=== PATIENT | female | born 1945 | race Caucasian/White ===

== ENCOUNTER 2020-01-30 14:47 | Inpatient (IN) | payer MEDICARE, BC ==
--- NOTE | 2020-01-30 15:12 | ED ---
General Adult HPI - General Chief complaint: Syncope Stated complaint: syncope Time Seen by Provider: 01/30/20 14:52 Source: patient, EMS Mode of arrival: EMS Limitations: no limitations - History of Present Illness Initial comments: Dictation was produced using [employer] dictation software. please excuse any grammatical, word or spelling errors. This patient was cared for during a federal and state declared state of emergency secondary to Covid 19 Chief Complaint: 74-year-old female brought in by EMS for syncopal episode. History of Present Illness: Is a 74-year-old female she is currently asymptomatic. Patient states that today she was sitting on the toilet when she all of a sudden felt cramping in her abdominal area. All of a sudden the next she remembers was that she was in the ambulance. EMS reports that she was unconscious for approximately 5 minutes upon their initial evaluation. There was period of time where patient was pulseless according to EMS. No CPR was provided. All of a sudden patient came. Patient states she feels okay right now. She is not sure if she felt palpitations prior to syncopal episode. . The ROS documented in this emergency department record has been reviewed and confirmed by me. Those systems with pertinent positive or negative responses have been documented in the HPI. All other systems are other negative and/or noncontributory. PHYSICAL EXAM: General Impression: Alert and oriented x3, not in acute distress HEENT: Normocephalic atraumatic, extra-ocular movements intact, pupils equal and reactive to light bilaterally, mucous membranes moist. Cardiovascular: Heart regular rate and rhythm Chest: Able to complete full sentences, no retractions, no tachypnea Abdomen: abdomen soft, mild tenderness to the epigastric area, non-distended, no organomegaly Musculoskeletal: Pulses present and equal in all extremities, no peripheral edema Motor: no focal deficits noted Neurological: CN II-XII grossly intact, no focal motor or sensory deficits noted Skin: Intact with no visualized rashes Psych: Normal affect and mood ED course: 74-year-old female presents after syncopal episode. Vital signs upon arrival are within acceptable limits. EKG is normal Laboratory evaluation obtained. CBC unremarkable. Coag panel is negative. Metabolic panel is negative. Cardiac enzymes negative. Urinalysis shows 25 white blood cells. Patient does have some suprapubic cramping. She is observed in emergency department for a couple hours with no acute events. Considering how serious patient's initial presentation was EMS we'll have patient admitted and evaluated for syncope. Patient is agreeable with plan. EKG interpretation: Ventricular rate 64, normal sinus rhythm,. Interval 16, QRS 86, QTC 443. No GA prolongation, no QTC prolongation, no ST or T-wave changes noted. No old EKG for comparison. Overall, this EKG is unremarkable Severity scale (1-10): 0 - Related Data Home Medications Medication Instructions Recorded Confirmed Acetaminophen Tab [Tylenol Tab] 500 mg PO Q6H 01/30/20 01/30/20 Aspirin EC [Ecotrin Low Dose] 81 mg PO DAILY 01/30/20 01/30/20 Calcium Carbonate [Calcium] 600 mg PO DAILY 01/30/20 01/30/20 Candesartan Cilexetil 8 mg PO DAILY PRN 01/30/20 01/30/20 Cholecalciferol [Vitamin D3 (25 1,000 unit PO DAILY 01/30/20 01/30/20 Mcg = 1000 Iu)] Losartan Potassium 50 mg PO DAILY 01/30/20 01/30/20 Metoprolol Succinate (ER) [Toprol 50 mg PO HS 01/30/20 01/30/20 Xl] Potassium Gluconate 99 mg PO DAILY 01/30/20 01/30/20 Vit A/Vit C/Vit E/Zinc/Copper 1 cap PO DAILY 01/30/20 01/30/20 [ICAPS SOFTGEL] Vitamin C/Biotin [Hair, Skin and 1 tab PO DAILY 01/30/20 01/30/20 Nails] amLODIPine [Norvasc] 5 mg PO DAILY 01/30/20 01/30/20 Allergies Allergy/AdvReac Type Severity Reaction Status Date / Time No Known Allergies Allergy Verified 01/30/20 16:02 Review of Systems ROS Statement: Those systems with pertinent positive or pertinent negative responses have been documented in the HPI. ROS Other: All systems not noted in ROS Statement are negative. Past Medical History Past Medical History: GERD/Reflux, Hypertension History of Any Multi-Drug Resistant Organisms: None Reported Past Surgical History: Appendectomy, Cholecystectomy Past Psychological History: No Psychological Hx Reported Smoking Status: Never smoker Past Alcohol Use History: None Reported Past Drug Use History: None Reported General Exam Limitations: no limitations Course Vital Signs 01/30/20 01/30/20 15:06 16:14 Pulse Rate 69 Pulse Rate [ 80 Sitting] Pulse Rate [ 81 Standing] Pulse Rate [ 76 Supine] Respiratory 16 17 Rate Blood Pressure 157/76 Blood Pressure 167/80 [Sitting] Blood Pressure 170/87 [Standing] Blood Pressure 135/93 [Supine] O2 Sat by Pulse 96 Oximetry Medical Decision Making - Lab Data Result diagrams: 01/30/20 15:48 01/30/20 15:48 Lab Results 01/30/20 01/30/20 01/30/20 Range/Units 15:48 15:48 15:48 WBC 7.8 (3.8-10.6) k/uL RBC 4.36 (3.80-5.40) m/uL Hgb 13.2 (11.4-16.0) gm/dL Hct 41.1 (34.0-46.0) % MCV 94.2 (80.0-100.0) fL MCH 30.2 (25.0-35.0) pg MCHC 32.1 (31.0-37.0) g/dL RDW 12.9 (11.5-15.5) % Plt Count 217 (150-450) k/uL Neutrophils % 70 % Lymphocytes % 19 % Monocytes % 8 % Eosinophils % 2 % Basophils % 1 % Neutrophils # 5.4 (1.3-7.7) k/uL Lymphocytes # 1.5 (1.0-4.8) k/uL Monocytes # 0.6 (0-1.0) k/uL Eosinophils # 0.1 (0-0.7) k/uL Basophils # 0.1 (0-0.2) k/uL PT 10.1 (9.0-12.0) sec INR 1.0 (<1.2) APTT 22.1 (22.0-30.0) sec Sodium 139 (137-145) mmol/L Potassium 3.7 (3.5-5.1) mmol/L Chloride 107 (98-107) mmol/L Carbon Dioxide 25 (22-30) mmol/L Anion Gap 7 mmol/L BUN 15 (7-17) mg/dL Creatinine 0.95 (0.52-1.04) mg/dL Est GFR (CKD-EPI)AfAm 68 (>60 ml/min/1.73 sqM) Est GFR (CKD-EPI)NonAf 59 (>60 ml/min/1.73 sqM) Glucose 138 H (74-99) mg/dL Plasma Lactic Acid [place] (0.7-2.0) mmol/L Calcium 8.6 (8.4-10.2) mg/dL Magnesium 2.0 (1.6-2.3) mg/dL Total Bilirubin 0.4 (0.2-1.3) mg/dL AST 29 (14-36) U/L ALT 15 (4-34) U/L Alkaline Phosphatase 67 (38-126) U/L Troponin I (0.000-0.034) ng/mL Total Protein 6.8 (6.3-8.2) g/dL Albumin 4.2 (3.5-5.0) g/dL Lipase 155 (23-300) U/L Urine Color Urine Appearance (Clear) Urine pH (5.0-8.0) Ur Specific [place] (1.001-1.035) Urine Protein (Negative) Urine Glucose (UA) (Negative) Urine Ketones (Negative) Urine Blood (Negative) Urine Nitrite (Negative) Urine Bilirubin (Negative) Urine Urobilinogen (<2.0) mg/dL Ur Leukocyte Esterase (Negative) Urine RBC (0-5) /hpf Urine WBC (0-5) /hpf Ur Squamous Epith Cells (0-4) /hpf Urine Bacteria (None) /hpf Urine Mucus (None) /hpf 01/30/20 01/30/20 01/30/20 Range/Units 15:48 15:48 16:48 WBC (3.8-10.6) k/uL RBC (3.80-5.40) m/uL Hgb (11.4-16.0) gm/dL Hct (34.0-46.0) % MCV (80.0-100.0) fL MCH (25.0-35.0) pg MCHC (31.0-37.0) g/dL RDW (11.5-15.5) % Plt Count (150-450) k/uL Neutrophils % % Lymphocytes % % Monocytes % % Eosinophils % % Basophils % % Neutrophils # (1.3-7.7) k/uL Lymphocytes # (1.0-4.8) k/uL Monocytes # (0-1.0) k/uL Eosinophils # (0-0.7) k/uL Basophils # (0-0.2) k/uL PT (9.0-12.0) sec INR (<1.2) APTT (22.0-30.0) sec Sodium (137-145) mmol/L Potassium (3.5-5.1) mmol/L Chloride (98-107) mmol/L Carbon Dioxide (22-30) mmol/L Anion Gap mmol/L BUN (7-17) mg/dL Creatinine (0.52-1.04) mg/dL Est GFR (CKD-EPI)AfAm (>60 ml/min/1.73 sqM) Est GFR (CKD-EPI)NonAf (>60 ml/min/1.73 sqM) Glucose (74-99) mg/dL Plasma Lactic Acid [place] 1.3 (0.7-2.0) mmol/L Calcium (8.4-10.2) mg/dL Magnesium (1.6-2.3) mg/dL Total Bilirubin (0.2-1.3) mg/dL AST (14-36) U/L ALT (4-34) U/L Alkaline Phosphatase (38-126) U/L Troponin I <0.012 (0.000-0.034) ng/mL Total Protein (6.3-8.2) g/dL Albumin (3.5-5.0) g/dL Lipase (23-300) U/L Urine Color Yellow Urine Appearance Clear (Clear) Urine pH 6.0 (5.0-8.0) Ur Specific [place] 1.020 (1.001-1.035) Urine Protein Trace H (Negative) Urine Glucose (UA) Negative (Negative) Urine Ketones Negative (Negative) Urine Blood Negative (Negative) Urine Nitrite Negative (Negative) Urine Bilirubin Negative (Negative) Urine Urobilinogen 2.0 (<2.0) mg/dL Ur Leukocyte Esterase Large H (Negative) Urine RBC 2 (0-5) /hpf Urine WBC 25 H (0-5) /hpf Ur Squamous Epith Cells <1 (0-4) /hpf Urine Bacteria Rare H (None) /hpf Urine Mucus Rare H (None) /hpf Disposition Clinical Impression: Syncope Disposition: ADMITTED IP TO THIS HOSP Condition: Fair Referrals: Treasure Clarke DO [Primary Care Provider] - 1-2 days Decision Time: 17:30
[2020-01-30 16:05] LABS: Basophils # (A) 0.1 k/uL (0-0.2); Basophils % (A) 1 %; Eosinophils # (A) 0.1 k/uL (0-0.7); Eosinophils % (A) 2 %; HCT 41.1 % (34.0-46.0); HGB 13.2 gm/dL (11.4-16.0); Lymphocytes # (A) 1.5 k/uL (1.0-4.8); Lymphocytes % (A) 19 %; MCH 30.2 pg (25.0-35.0); MCHC 32.1 g/dL (31.0-37.0); MCV 94.2 fL (80.0-100.0); Mean Platelet Volume 7.8; Monocytes # (A) 0.6 k/uL (0-1.0); Monocytes % (A) 8 %; Neutrophils # (A) 5.4 k/uL (1.3-7.7); Neutrophils % (A) 70 %; Platelet Count 217 k/uL (150-450); RBC 4.36 m/uL (3.80-5.40); RDW 12.9 % (11.5-15.5); WBC 7.8 k/uL (3.8-10.6)
[2020-01-30 16:11] LABS: Partial Thromboplastin Time 22.1 sec (22.0-30.0); Prothrombin Time 10.1 sec (9.0-12.0)
[2020-01-30 16:20] LABS: Albumin 4.2 g/dL (3.5-5.0); Calcium 8.6 mg/dL (8.4-10.2); Potassium 3.7 mmol/L (3.5-5.1); Total Bilirubin 0.4 mg/dL (0.2-1.3); Total Protein 6.8 g/dL (6.3-8.2)
[2020-01-30 17:07] LABS: Appearance,Urine Clear (Clear); Bacteria,Urine Rare /hpf; Bilirubin,Urine Negative (Negative); Blood,Urine Negative (Negative); Color,Urine Yellow; Glucose,Urine (UA) Negative (Negative); Ketones,Urine Negative (Negative); Leukocyte Esterase,Urine Large (Negative); Mucus,Urine Rare /hpf; Nitrite,Urine Negative (Negative); Protein,Urine Trace (Negative); RBC,Urine 2 /hpf (0-5); Squamous Epithelial Cell,Urine <1 /hpf (0-4); WBC,Urine 25 /hpf (0-5)
[2020-01-30] MEDS ORDERED: cefTRIAXone IN SWFI 1,000 MG/10 ML SYRINGE IVP STA (17:08)
--- NOTE | 2020-01-30 17:14 | XR ---
EXAMINATION TYPE: XR chest 1V portable DATE OF EXAM: 01/30/2020 COMPARISON: Prior chest x-ray July 02, 2016. HISTORY: Syncope and weakness. TECHNIQUE: Single frontal view of the chest is obtained. FINDINGS: Persistent elevated lateral left hemidiaphragm. There is chronic parenchyma change bilatera lly without suspicious new focal air space opacity, pleural effusion, or pneumothorax seen. The card iac silhouette size is enlarged on current study. The osseous structures are demineralized. IMPRESSION: Chronic changes and cardiomegaly without suspicious acute pulmonary process.
[2020-01-30] MEDS ORDERED: NALOXONE 0.4 MG/ML 1 ML VIAL IV PRN (17:30)
--- NOTE | 2020-01-30 18:09 | P.HPIM ---
History of Present Illness H&P Date: 01/30/20 74-year-old female with PMH of hypertension presents the ED after syncopal episode. Patient states that she experienced lower abdominal cramping and thought that she had to use the washroom. She went to the toilet and states that she strained to have a bowel movement. Suddenly, she started experiencing lightheadedness along with nausea and sweating. She was able to lean up against the wall. She denies any head trauma. There was no bladder or bowel incontinence. There is no seizure-like activity. Patient was able to call for help and EMS was called. When EMS arrived, stated that patient lost consciousness for 5 minutes. There is also reports that patient lost her pulse. It is unclear why CPR was not performed. She was able to regain consciousness with EMS. Patient continues to report bilateral lower abdominal cramping along with nausea. States that she had 3 bowel movements today, loose stool. She denies any headache, lower extremity edema, fever or chills, cough, chest pain, shortness of breath. No changes in appetite or weight. She denies any numbness/weakness/tingling of the extremities. She denies any slurred speech or confusion. In the ED, her vital signs were stable. Orthostatic vitals were negative. CBC was unremarkable. CMP showed glucose of 138. Troponin was less than 0.012, EKG showing normal sinus rhythm. Urinalysis showed large leukocyte esterase. Chest x-ray showed chronic changes. Patient is admitted after syncopal episode for further workup and cardiology evaluation. Review of Systems Pertinent positives and negatives as discussed in HPI, a complete review of systems was performed and all other systems are negative. Past Medical History Past Medical History: GERD/Reflux, Hypertension History of Any Multi-Drug Resistant Organisms: None Reported Past Surgical History: Appendectomy, Cholecystectomy Past Psychological History: No Psychological Hx Reported Smoking Status: Never smoker Past Alcohol Use History: None Reported Past Drug Use History: None Reported Medications and Allergies Home Medications Medication Instructions Recorded Confirmed Type Acetaminophen Tab [Tylenol Tab] 500 mg PO Q6H 01/30/20 01/30/20 History Aspirin EC [Ecotrin Low Dose] 81 mg PO DAILY 01/30/20 01/30/20 History Calcium Carbonate [Calcium] 600 mg PO DAILY 01/30/20 01/30/20 History Candesartan Cilexetil 8 mg PO DAILY PRN 01/30/20 01/30/20 History Cholecalciferol [Vitamin D3 (25 1,000 unit PO DAILY 01/30/20 01/30/20 History Mcg = 1000 Iu)] Losartan Potassium 50 mg PO DAILY 01/30/20 01/30/20 History Metoprolol Succinate (ER) [Toprol 50 mg PO HS 01/30/20 01/30/20 History Xl] Potassium Gluconate 99 mg PO DAILY 01/30/20 01/30/20 History Vit A/Vit C/Vit E/Zinc/Copper 1 cap PO DAILY 01/30/20 01/30/20 History [ICAPS SOFTGEL] Vitamin C/Biotin [Hair, Skin and 1 tab PO DAILY 01/30/20 01/30/20 History Nails] amLODIPine [Norvasc] 5 mg PO DAILY 01/30/20 01/30/20 History Allergies Allergy/AdvReac Type Severity Reaction Status Date / Time No Known Allergies Allergy Verified 01/30/20 16:02 Physical Exam Vitals: Vital Signs Pulse Pulse Pulse Pulse Resp BP BP 01/30/20 17:15 70 16 126/76 01/30/20 16:14 69 17 157/76 01/30/20 15:06 80 81 76 16 167/80 BP BP Pulse Ox 01/30/20 17:15 100 01/30/20 16:14 96 01/30/20 15:06 170/87 135/93 Intake and Output 01/30/20 01/30/20 01/30/20 06:59 14:59 22:59 Other: Weight 63.503 kg General: [non toxic], [mild distress], [appears at stated age] Derm: [warm], [dry] Head: [atraumatic], [normocephalic], [symmetric] Eyes: [EOMI], [no lid lag], [anicteric sclera] Mouth: [no lip lesion], [mucus membranes moist] Cardiovascular: [S1S2 reg], [no murmur], [positive DP pulse bilateral], Lungs: [CTA bilateral], [no rhonchi, no rales] , [no accessory muscle use] Abdominal: [soft], [ nontender to palpation], [no guarding], [no appreciable organomegaly] Ext: [no gross muscle atrophy], [no edema], [no contractures] Neuro: [ CN II-XI grossly intact], [no focal neuro deficits] Psych: [Alert], [oriented], [appropriate affect] Results CBC & Chem 7: 01/30/20 15:48 01/30/20 15:48 Labs: Abnormal Lab Results - Last 24 Hours (Table) 01/30/20 01/30/20 Range/Units 15:48 16:48 Glucose 138 H (74-99) mg/dL Urine Protein Trace H (Negative) Ur Leukocyte Esterase Large H (Negative) Urine WBC 25 H (0-5) /hpf Urine Bacteria Rare H (None) /hpf Urine Mucus Rare H (None) /hpf Assessment and Plan Assessment: Syncopal episode Abdominal cramping with abnormal urinalysis Hypertension GERD Patient syncopal episode is consistent with vasovagal. Unclear EMS reports pulseless activity but did not perform CPR. Troponin is less than 0.012 with EKG showing normal sinus rhythm. Plans: Telemetry monitoring. Trend troponin/EKG to rule out ACS. Obtain echocardiogram. Orthostats tomorrow morning. Follow cardiology consultation. Urinalysis shows large leukocyte esterase. Plans: Patient with no urinary complaints. In light of abdominal cramping, start Rocephin 1 g daily. Follow urine culture. Obtain CT AP if pain is persistent tomorrow. BP 157/76. Plans: Restart amlodipine and losartan. Restart metoprolol. Monitor vitals, adjust medications if necessary. Plans: Protonix by mouth. DVT prophylaxis: [SCD boots] Discussed with: [Patient] Anticipated discharge: [1-2 days] Anticipated discharge place: [Home] A total of [35] minutes was spent on the care of this complex patient more than 50% of the time was spent in counseling and care coordination. Patient would like to be full code. She names her son Yifan and build decision- makers if she can't make decisions for herself.
[2020-01-30] MEDS: ACETAMINOPHEN TAB 325 MG TAB PO PRN (18:10)
[2020-01-30] MEDS: SODIUM CHLORIDE 0.9% 1,000 ML IV SCH (18:11)
[2020-01-30] MEDS: PANTOPRAZOLE 40 MG TABLET PO SCH (20:24)
[2020-01-30] MEDS: METOPROLOL SUCCINATE (ER) 50 MG TAB.ER.24H PO SCH (20:24)
[2020-01-30] MEDS: HYDROcodone/APAP 5-325MG 1 EACH TAB PO PRN (20:24)
[2020-01-30 23:20] LABS: Basophils # (A) 0.1 k/uL (0-0.2); Basophils % (A) 1 %; Eosinophils # (A) 0.1 k/uL (0-0.7); Eosinophils % (A) 1 %; HCT 39.5 % (34.0-46.0); HGB 12.8 gm/dL (11.4-16.0); Lymphocytes % (A) 7 %; MCH 30.4 pg (25.0-35.0); MCHC 32.3 g/dL (31.0-37.0); MCV 94.1 fL (80.0-100.0); Mean Platelet Volume 8.3; Monocytes # (A) 0.9 k/uL (0-1.0); Monocytes % (A) 6 %; Neutrophils # (A) 12.3 k/uL (1.3-7.7); Neutrophils % (A) 85 %; Platelet Count 209 k/uL (150-450); RBC 4.19 m/uL (3.80-5.40); RDW 12.8 % (11.5-15.5); WBC 14.5 k/uL (3.8-10.6)
[2020-01-31] MEDS: HYDROcodone/APAP 5-325MG 1 EACH TAB PO PRN ×2 (03:19→13:47)
[2020-01-31] MEDS ORDERED: PANTOPRAZOLE 40 MG TABLET PO SCH (07:30)
[2020-01-31 07:34] LABS: African American GFR (CKD) >90 (>60 ml/min/1.73 sqM); Anion Gap 9 mmol/L; Blood Urea Nitrogen 13 mg/dL (7-17); Calcium 8.5 mg/dL (8.4-10.2); Carbon Dioxide 19 mmol/L (22-30); Chloride 111 mmol/L (98-107); Glucose 93 mg/dL (74-99); Magnesium 1.9 mg/dL (1.6-2.3); Non-African American GFR(CKD) 81 (>60 ml/min/1.73 sqM); Potassium 3.9 mmol/L (3.5-5.1); Sodium 139 mmol/L (137-145)
[2020-01-31] MEDS: PANTOPRAZOLE 40 MG TABLET PO SCH ×2 (07:46→16:53)
[2020-01-31 07:51] LABS: Basophils % (A) 0 %; Eosinophils # (A) 0.1 k/uL (0-0.7); Eosinophils % (A) 1 %; HCT 41.2 % (34.0-46.0); HGB 13.1 gm/dL (11.4-16.0); Lymphocytes # (A) 1.3 k/uL (1.0-4.8); Lymphocytes % (A) 9 %; MCH 29.5 pg (25.0-35.0); MCHC 31.7 g/dL (31.0-37.0); MCV 92.9 fL (80.0-100.0); Mean Platelet Volume 8.5; Monocytes # (A) 1.1 k/uL (0-1.0); Monocytes % (A) 7 %; Neutrophils # (A) 11.7 k/uL (1.3-7.7); Neutrophils % (A) 82 %; Platelet Count 207 k/uL (150-450); RBC 4.44 m/uL (3.80-5.40); RDW 13.3 % (11.5-15.5); WBC 14.2 k/uL (3.8-10.6)
--- NOTE | 2020-01-31 09:47 | P.CRDCN ---
History of Present Illness Consult date: 01/31/20 Consult reason: sycope Chief complaint: Syncope History of present illness: This is a pleasant 74-year-old female with documented history of hypertension, GERD. He presented to the hospital via EMS after a syncopal episode. According to the patient, she was out shopping yesterday, developed some abdominal cramping and felt as though she needed to use the restroom. After getting into the restroom, she states that the cramps worsened and the pain became quite severe. She felt as though she may pass out and shortly thereafter she did. There was some question on EMS arrival as to whether or not the patient had a pulse, no CPR was performed. Patient states she has had one prior episode, very similar to this one, at which time she again had abdominal cramping with subsequent syncope. Patient denies any significant cardiac history. Her chest x-ray on presentation was normal EKG showed normal sinus rhythm with no acute changes. Orthostatics were obtained which came back to be negative. 135/90 lying 167/80 sitting and 170/80 standing. Heart rate maintaining in the 80s she is afebrile, she did noticed this morning that she's having some bright red blood in her stool, stool for occult blood was obtained which came back to be positive. Troponins have been negative 3. Sodium 139, potassium 3.9, BUN 13, creatinine 0.73. C. diff was negative, whit[place] virus testing is pending. White blood cell count 14.2, hemoglobin 13.1, platelet count 207. The patient does state that she gets intermittent abdominal cramping, and does feel a little lightheaded when this happens. Past Medical History Past Medical History: GERD/Reflux, Hypertension History of Any Multi-Drug Resistant Organisms: None Reported Past Surgical History: Appendectomy, Cholecystectomy Past Anesthesia/Blood Transfusion Reactions: No Reported Reaction Past Psychological History: No Psychological Hx Reported Smoking Status: Never smoker Past Alcohol Use History: None Reported Past Drug Use History: None Reported - Past Family History Mother Family Medical History: Cancer Additional Family Medical History / Comment(s): bone cancer Father Family Medical History: Hypertension Additional Family Medical History / Comment(s): aneurysm Sister(s) Family Medical History: Hypertension Brother(s) Family Medical History: Cancer, Coronary Artery Disease (CAD) Additional Family Medical History / Comment(s): bone cancer, cabg Son(s) Family Medical History: No Reported History Medications and Allergies Home Medications Medication Instructions Recorded Confirmed Type Acetaminophen Tab [Tylenol Tab] 500 mg PO Q6H 01/30/20 01/30/20 History Aspirin EC [Ecotrin Low Dose] 81 mg PO DAILY 01/30/20 01/30/20 History Calcium Carbonate [Calcium] 600 mg PO DAILY 01/30/20 01/30/20 History Candesartan Cilexetil 8 mg PO DAILY PRN 01/30/20 01/30/20 History Cholecalciferol [Vitamin D3 (25 1,000 unit PO DAILY 01/30/20 01/30/20 History Mcg = 1000 Iu)] Losartan Potassium 50 mg PO DAILY 01/30/20 01/30/20 History Metoprolol Succinate (ER) [Toprol 50 mg PO HS 01/30/20 01/30/20 History Xl] Potassium Gluconate 99 mg PO DAILY 01/30/20 01/30/20 History Vit A/Vit C/Vit E/Zinc/Copper 1 cap PO DAILY 01/30/20 01/30/20 History [ICAPS SOFTGEL] Vitamin C/Biotin [Hair, Skin and 1 tab PO DAILY 01/30/20 01/30/20 History Nails] amLODIPine [Norvasc] 5 mg PO DAILY 01/30/20 01/30/20 History Allergies Allergy/AdvReac Type Severity Reaction Status Date / Time No Known Allergies Allergy Verified 01/30/20 19:25 Physical Exam Vitals: Vital Signs Temp Pulse Pulse Pulse Pulse Resp BP 01/31/20 02:45 97.5 F L 100 18 01/30/20 20:02 97.9 F 85 18 01/30/20 18:22 97.5 F L 68 10 L 165/77 01/30/20 17:15 70 16 126/76 01/30/20 16:14 69 17 157/76 01/30/20 15:06 80 81 76 16 BP BP BP Pulse Ox 01/31/20 02:45 181/88 100 01/30/20 20:02 156/87 100 01/30/20 18:22 97 01/30/20 17:15 100 01/30/20 16:14 96 01/30/20 15:06 167/80 170/87 135/93 Intake and Output 01/30/20 01/31/20 01/31/20 22:59 06:59 14:59 Output Total 1 Balance -1 Output: Stool 1 Other: Voiding Method Bedside Commode Bedside Commode # Voids 1 # Bowel Movements 1 PHYSICAL EXAMINATION: GENERAL: 74-year-old female in no acute distress at the time of my examination HEENT: Head is atraumatic, normocephalic. Pupils equal, round. Sclera anicteric. Conjunctiva are clear. Mucous membranes of the mouth are moist. Neck is supple. There is no elevated jugular venous pressure. No carotid bruit is heard. HEART EXAMINATION: Heart S1, S2 normal. No murmur or gallop heard. CHEST EXAMINATION: Lungs are clear to auscultation and precussion. No chest wall tenderness is noted on palpation or with deep breathing. ABDOMEN: Soft, nontender. Bowel sounds are heard. No organomegaly noted. EXTREMITIES: 2+ peripheral pulses with no evidence of peripheral edema and no calf tenderness noted. NEUROLOGIC patient is awake, alert and oriented 3 . . Results 01/31/20 06:54 01/31/20 06:54 Cardiac Enzymes 01/30/20 01/30/20 01/30/20 Range/Units 15:48 15:48 17:58 AST 29 (14-36) U/L Troponin I <0.012 <0.012 (0.000-0.034) ng/mL 01/30/20 Range/Units 23:00 AST (14-36) U/L Troponin I <0.012 (0.000-0.034) ng/mL Coagulation 01/30/20 Range/Units 15:48 PT 10.1 (9.0-12.0) sec APTT 22.1 (22.0-30.0) sec CBC 01/30/20 01/30/20 01/31/20 Range/Units 15:48 23:00 06:54 WBC 7.8 14.5 H 14.2 H (3.8-10.6) k/uL RBC 4.36 4.19 4.44 (3.80-5.40) m/uL Hgb 13.2 12.8 13.1 (11.4-16.0) gm/dL Hct 41.1 39.5 41.2 (34.0-46.0) % Plt Count 217 209 207 (150-450) k/uL Comprehensive Metabolic Panel 01/30/20 01/31/20 Range/Units 15:48 06:54 Sodium 139 139 (137-145) mmol/L Potassium 3.7 3.9 (3.5-5.1) mmol/L Chloride 107 111 H (98-107) mmol/L Carbon Dioxide 25 19 L (22-30) mmol/L BUN 15 13 (7-17) mg/dL Creatinine 0.95 0.73 (0.52-1.04) mg/dL Glucose 138 H 93 (74-99) mg/dL Calcium 8.6 8.5 (8.4-10.2) mg/dL AST 29 (14-36) U/L ALT 15 (4-34) U/L Alkaline Phosphatase 67 (38-126) U/L Total Protein 6.8 (6.3-8.2) g/dL Albumin 4.2 (3.5-5.0) g/dL Current Medications Generic Name Dose Route Start Last Admin Trade Name Freq PRN Reason Stop Dose Admin Acetaminophen 650 mg 01/30/20 17:54 01/30/20 18:10 Acetaminophen Tab 325 Mg Tab PO 650 mg Q6HR PRN Administration Mild Pain or Fever > 100.5 Hydrocodone Bitart/Acetaminophen 1 each 01/30/20 19:35 01/31/20 03:19 Hydrocodone/Apap 5-325mg 1 Each Tab PO 1 each Q4HR PRN Administration Pain Amlodipine Besylate 5 mg 01/31/20 09:00 Amlodipine 5 Mg Tab PO DAILY ANA Aspirin 81 mg 01/31/20 09:00 Aspirin 81 Mg PO DAILY ANA Sodium Chloride 1,000 mls @ 20 mls/hr 01/30/20 17:30 01/30/20 18:11 Saline 0.9% IV 20 mls/hr .Q24H ANA Administration Losartan Potassium 50 mg 01/31/20 09:00 Losartan 50 Mg Tab PO DAILY ANA Metoprolol Succinate 50 mg 01/30/20 21:00 01/30/20 20:24 Metoprolol Succinate (Er) 50 Mg Tab.Er.24h PO 50 mg HS ANA Administration Naloxone HCl 0.2 mg 01/30/20 17:30 Naloxone 0.4 Mg/Ml 1 Ml Vial IV Q2M PRN Opioid Reversal Pantoprazole Sodium 40 mg 10/06/20 19:45 01/31/20 07:46 Pantoprazole 40 Mg Tablet PO 40 mg AC-BID ANA Administration Intake and Output 01/30/20 01/31/20 01/31/20 22:59 06:59 14:59 Output Total 1 Balance -1 Output: Stool 1 Other: Voiding Method Bedside Commode Bedside Commode # Voids 1 # Bowel Movements 1 01/31/20 06:54 01/31/20 06:54 EKG Interpretations (text) EKG shows a normal sinus rhythm with no acute changes. Assessment and Plan Plan: Assessment and plan #1 syncope, likely vasovagal in nature, precipitated by pain. Patient had one very similar episode in the past. We will rule out any cardiac causes. Orthostatics have been negative so far. No arrhythmias noted on the monitor. #2 hypertension #3 GERD #4 bright red bloody stools this morning stool for occult blood positive Plan We will obtain an echocardiogram with Doppler study, check a d-dimer, continue to monitor the patient for any significant tachycardia or bradycardia arrhythmias, we will continue to check orthostatics every shift although so far they have been negative. Recommend a 30 day event monitor on discharge. Further recommendations to follow. DNP note has been reviewed, I agree with a documented findings and plan of care. Patient was seen and examined.
[2020-01-31] MEDS ORDERED: IOPAMIDOL CONTRAST (ORAL USE) VIAL PO PRN (09:50)
[2020-01-31] MEDS: ONDANSETRON 4 MG/2 ML VIAL IVP PRN ×2 (10:15→21:09)
--- NOTE | 2020-01-31 12:03 | P.PN ---
Subjective Progress Note Date: 01/31/20 Patient was seen and examined. No acute events overnight. Multiple bloody bowel movements overnight with abdominal cramping. Patient denies any chest pain, shortness breath or palpitations. Complains of some nausea. No dizziness or further syncopal episodes. No fever or chills. Objective - Vital Signs Vital signs: Vital Signs Temp 98.4 F 01/31/20 09:00 Pulse 74 01/31/20 09:00 Resp 19 01/31/20 09:00 BP 163/73 01/31/20 09:00 Pulse Ox 98 01/31/20 09:00 Intake & Output 01/30/20 01/31/20 01/31/20 18:59 06:59 18:59 Output Total 1 Balance -1 Weight 63.503 kg Output: Stool 1 Other: Voiding Method Bedside Commode # Voids 1 # Bowel Movements 1 - Exam General: [non toxic], [no distress], [appears at stated age] Derm: [warm], [dry] Head: [atraumatic], [normocephalic], [symmetric] Eyes: [EOMI], [no lid lag], [anicteric sclera] Mouth: [no lip lesion], [mucus membranes moist] Cardiovascular: [S1S2 reg], [no murmur], [positive posterior tibial pulse bilateral], Lungs: [CTA bilateral], [no rhonchi, no rales] , [no accessory muscle use] Abdominal: [soft], [ nontender to palpation], [no guarding], [no appreciable organomegaly] Ext: [no gross muscle atrophy], [no edema], [no contractures] Neuro: [no focal neuro deficits] Psych: [Alert], [oriented], [appropriate affect] - Labs CBC & Chem 7: 01/31/20 06:54 01/31/20 06:54 Labs: Abnormal Lab Results - Last 24 Hours (Table) 01/30/20 01/30/20 01/30/20 Range/Units 15:48 16:48 19:35 WBC (3.8-10.6) k/uL Neutrophils # (1.3-7.7) k/uL Monocytes # (0-1.0) k/uL Chloride (98-107) mmol/L Carbon Dioxide (22-30) mmol/L Glucose 138 H (74-99) mg/dL Urine Protein Trace H (Negative) Ur Leukocyte Esterase Large H (Negative) Urine WBC 25 H (0-5) /hpf Urine Bacteria Rare H (None) /hpf Urine Mucus Rare H (None) /hpf Stool Occult Blood Positive H (Negative) 01/30/20 01/31/20 01/31/20 Range/Units 23:00 06:54 06:54 WBC 14.5 H 14.2 H (3.8-10.6) k/uL Neutrophils # 12.3 H 11.7 H (1.3-7.7) k/uL Monocytes # 1.1 H (0-1.0) k/uL Chloride 111 H (98-107) mmol/L Carbon Dioxide 19 L (22-30) mmol/L Glucose (74-99) mg/dL Urine Protein (Negative) Ur Leukocyte Esterase (Negative) Urine WBC (0-5) /hpf Urine Bacteria (None) /hpf Urine Mucus (None) /hpf Stool Occult Blood (Negative) Microbiology - Last 24 Hours (Table) 01/30/20 18:19 Urine Culture - Preliminary Urine,Clean Catch 01/30/20 20:21 Stool Culture - Preliminary Stool Assessment and Plan Assessment: Syncopal episode Abdominal cramping with hematochezia Abnormal urinalysis Hypertension GERD Patient syncopal episode is consistent with vasovagal. Unclear EMS reports pulseless activity but did not perform CPR. Troponin is less than 0.012 3 with EKG showing normal sinus rhythm. Orthostats negative. Plans: Telemetry monitoring. Obtain echocardiogram. Follow cardiology consultation. Possible diverticulitis. Also has leukocytosis. Plans: Obtain CT abdomen and pelvis with contrast. Follow GI consultation. Urinalysis shows large leukocyte esterase. Plans: Patient with no urinary complaints. In light of abdominal cramping, start Rocephin 1 g daily. Follow urine culture. BP 173/74. Plans: Restart amlodipine and losartan. Restart metoprolol. Monitor vitals, adjust medications if necessary. Plans: Protonix by mouth. DVT prophylaxis: [SCD boots] Discussed with: [Patient] Anticipated discharge: [1-2 days] Anticipated discharge place: [Home] A total of [35] minutes was spent on the care of this complex patient more than 50% of the time was spent in counseling and care coordination. Patient would like to be full code. She names her son Yifan and build decision- makers if she can't make decisions for herself.
[2020-01-31] MEDS: amLODIPine 5 MG TAB PO SCH (12:08)
[2020-01-31] MEDS: ASPIRIN 81 MG PO SCH (12:09)
[2020-01-31] MEDS: LOSARTAN 50 MG TAB PO SCH (12:09)
--- NOTE | 2020-01-31 12:57 | CT ---
EXAMINATION TYPE: CT abdomen pelvis w con DATE OF EXAM: 01/31/2020 COMPARISON: None HISTORY: GI bleed CT DLP: 826 mGycm Automated exposure control for dose reduction was used. TECHNIQUE: Helical acquisition of images from the lung bases through the pelvis have been completed. CONTRAST: Performed with Oral Contrast and with IV Contrast, patient injected with 100 mL of Isovue 300. FINDINGS: There is a large gastric diverticulum or ulcer present at the level of the cardia which is contrast-filled. LUNG BASES: Some probable dependent atelectatic changes are present AORTA: No significant abnormality is appreciated. LIVER/GB: Patient is post cholecystectomy. Some prominence of the biliary system, central intrahepati c biliary ducts common bile duct likely due to postcholecystectomy change.e low dense liver could be due to underlying hepatic steatosis. PANCREAS: No significant abnormality is seen. SPLEEN: Punctate calcifications suggest old granulomatous disease ADRENALS: No significant abnormality is seen. KIDNEYS: No significant abnormality is seen. REPRODUCTIVE ORGANS: No significant abnormality is seen BOWEL: Descending colon shows focal thickening, there is some pericolonic inflammatory change.. FREE AIR: No Free Air visible. ASCITES: Small amount of free fluid present within the pelvis. PELVIC ADENOPATHY: None visualized. RETROPERITONEAL ADENOPATHY: No Retroperitoneal Adenopathy visible. URINARY BLADDER: No significant abnormality is seen. OSSEOUS STRUCTURES: Degenerative disc changes, facet arthropathy noted in the visualized spine. Ther e is a spinal curvature. IMPRESSION: CORRELATE FOR COLITIS. FOLLOW-UP SUGGESTED. POSTOP CHANGES. PROBABLE LARGE GASTRIC DIVERTICULUM OR UL CER.
[2020-01-31] MEDS: metroNIDAZOLE-NS PMX 500 MG in SALINE 1 100ML.BAG IVPB SCH ×2 (16:26→23:12)
[2020-01-31] MEDS: SODIUM CHLORIDE 0.9% 1,000 ML IV SCH (18:16)
--- NOTE | 2020-01-31 19:00 | ECHOF ---
Referral Reason:Syncope MEASUREMENTS -------- HEIGHT: 160.0 cm WEIGHT: 63.5 kg BP: IVSd: 1.3 cm (0.6 - 1.1) LVIDd: 3.3 cm (3.9 - 5.3) LVPWd: 1.4 cm (0.6 - 1.1) IVSs: 1.6 cm LVIDs: 1.5 cm LVPWs: 1.8 cm Ao Diam: 2.6 cm (2.0 - 3.7) AV Cusp: 2.0 cm (1.5 - 2.6) LA Diam: 3.9 cm (2.7 - 3.8) MV EXCURSION: 15.618 mm (> 18.000) MV EF SLOPE: 97 mm/s (70 - 150) EPSS: 0.3 cm MV E Imtiaz: 1.28 m/s MV DecT: 223 ms MV A Imtiaz: 0.92 m/s MV E/A Ratio: 1.39 RAP: 5.00 mmHg RVSP: 33.34 mmHg FINDINGS -------- This was a technically difficult study with suboptimal views. The left ventricular size is normal. There is mild concentric left ventricular hypertrophy. Overa ll left ventricular systolic function is normal with, an EF between 55 - 60 %. The right ventricle is normal in size. The left atrial size is normal. The right atrial size is normal. The aortic valve was not well visualized. The mitral valve is normal. There is trace mitral regurgitation. The tricuspid valve appears structurally normal. Mild tricuspid regurgitation present. Right vent ricular systolic pressure is normal at < 35 mmHg. There is no pulmonic regurgitation present. The aortic root size is normal. IVC Not well visulized. There is no pericardial effusion. CONCLUSIONS -------- 1. The left ventricular size is normal. 2. There is mild concentric left ventricular hypertrophy. 3. Overall left ventricular systolic function is normal with, an EF between 55 - 60 %. 4. There is trace mitral regurgitation. 5. Mild tricuspid regurgitation present. 6. There is no pericardial effusion. CAR REPAIRER HELPER: Malathi Diop, [facility]
[2020-01-31] MEDS: METOPROLOL SUCCINATE (ER) 50 MG TAB.ER.24H PO SCH (21:11)
[2020-02-01] MEDS: HYDROcodone/APAP 5-325MG 1 EACH TAB PO PRN (00:10)
--- NOTE | 2020-02-01 07:33 | P.CONS ---
History of Present Illness - Reason for Consult Consult date: 01/31/20 Diarrhea, blood per rectum Requesting physician: Oscar Alexandre - Chief Complaint Diarrhea, blood per rectum - History of Present Illness 74-year-old female with a past medical history significant for hypertension who presented to the hospital with complaints of abdominal pain, diarrhea rectum. The patient reports developing crampy abdominal pain. Cramping was diffuse across her abdomen. The patient reports subsequently having 78 loose watery bowel movements over the night. She had associated bright red blood passed with the episodes of diarrhea. She denies any constipation or straining at baseline her proceeding the episode. She does report nausea with no vomiting in association with the episode. Last colonoscopy less than 4 years ago per her recollection and normal. Stool testing for occult blood positive on presentation. Testing for Clostridium difficile negative. WBC 14.2, hemoglobin 13.1, platelet count 207,000, total bilirubin 0.4, alkaline phosphatase 67, AST 29 and ALT 15. The patient had computed tomography scan of the abdomen perfor med in evaluation with evidence of the descending colitis. Currently she is seen lying in the observation unit reporting some improvement in the abdominal pain. Only one further episode of diarrhea since this morning with only a small amount of blood. Review of Systems REVIEW OF SYSTEMS: CONSTITUTIONAL: Denies any fevers, chills, weight change or fatigue. CARDIOVASCULAR: Denies any chest pain, palpitations high or low blood pressures RESPIRATORY: Denies any shortness of breath, hemoptysis or cough. GENITOURINARY: No dysuria or hematuria. MUSCULOSKELETAL: No weakness reported. SKIN: Denies any new rashes or lesions, jaundice or pallor. PSYCHIATRIC: Denies any depression or anxiety. NEUROLOGY: Denies headache, denies any new focal deficits. EARS/NOSE/THROAT: No recent hearing change, congestion, nasal discharge or sore throat. EYES: No pain in eyes, discharge or change in vision. GASTROINTESTINAL: As per HPI. Past Medical History Past Medical History: GERD/Reflux, Hypertension History of Any Multi-Drug Resistant Organisms: None Reported Past Surgical History: Appendectomy, Cholecystectomy Past Anesthesia/Blood Transfusion Reactions: No Reported Reaction Past Psychological History: No Psychological Hx Reported Smoking Status: Never smoker Past Alcohol Use History: None Reported Past Drug Use History: None Reported - Past Family History Mother Family Medical History: Cancer Additional Family Medical History / Comment(s): bone cancer Father Family Medical History: Hypertension Additional Family Medical History / Comment(s): aneurysm Sister(s) Family Medical History: Hypertension Brother(s) Family Medical History: Cancer, Coronary Artery Disease (CAD) Additional Family Medical History / Comment(s): bone cancer, cabg Son(s) Family Medical History: No Reported History Medications and Allergies Home Medications Medication Instructions Recorded Confirmed Type Acetaminophen Tab [Tylenol Tab] 500 mg PO Q6H 01/30/20 01/30/20 History Aspirin EC [Ecotrin Low Dose] 81 mg PO DAILY 01/30/20 01/30/20 History Calcium Carbonate [Calcium] 600 mg PO DAILY 01/30/20 01/30/20 History Candesartan Cilexetil 8 mg PO DAILY PRN 01/30/20 01/30/20 History Cholecalciferol [Vitamin D3 (25 1,000 unit PO DAILY 01/30/20 01/30/20 History Mcg = 1000 Iu)] Losartan Potassium 50 mg PO DAILY 01/30/20 01/30/20 History Metoprolol Succinate (ER) [Toprol 50 mg PO HS 01/30/20 01/30/20 History Xl] Potassium Gluconate 99 mg PO DAILY 01/30/20 01/30/20 History Vit A/Vit C/Vit E/Zinc/Copper 1 cap PO DAILY 01/30/20 01/30/20 History [ICAPS SOFTGEL] Vitamin C/Biotin [Hair, Skin and 1 tab PO DAILY 01/30/20 01/30/20 History Nails] amLODIPine [Norvasc] 5 mg PO DAILY 01/30/20 01/30/20 History Allergies Allergy/AdvReac Type Severity Reaction Status Date / Time No Known Allergies Allergy Verified 01/30/20 19:25 Physical Exam Vitals: Vital Signs Temp Pulse Pulse Pulse Pulse Resp BP 01/31/20 09:00 98.4 F 78 76 74 18 01/31/20 02:45 97.5 F L 100 18 01/30/20 20:02 97.9 F 85 18 01/30/20 18:22 97.5 F L 68 10 L 165/77 01/30/20 17:15 70 16 126/76 01/30/20 16:14 69 17 157/76 01/30/20 15:06 80 81 76 16 BP BP BP Pulse Ox 01/31/20 09:00 173/74 157/72 163/73 98 01/31/20 02:45 181/88 100 01/30/20 20:02 156/87 100 01/30/20 18:22 97 01/30/20 17:15 100 01/30/20 16:14 96 01/30/20 15:06 167/80 170/87 135/93 Intake and Output 01/30/20 01/31/20 01/31/20 22:59 06:59 14:59 Output Total 1 Balance -1 Output: Stool 1 Other: Voiding Method Bedside Commode Bedside Commode # Voids 1 # Bowel Movements 1 On physical examination, patient appears comfortable in no apparent distress. HEAD: Normocephalic, atraumatic. EYES: No scleral icterus. No conjunctival injection. MOUTH: No lesions, tongue midline. NECK: Trachea midline, no gross abnormalities. CHEST: Clear to auscultation with no wheezing or rhonchi appreciated. HEART: Regular rate and rhythm. ABDOMEN: Soft, mildly tender to palpation. Bowel sounds are positive. No organomegaly. No guarding or rigidity. EXTREMITIES: No pedal edema. SKIN: No rashes, no jaundice. NEUROLOGIC: Alert and oriented x3. No focal deficits. Results CBC & Chem 7: 01/31/20 06:54 01/31/20 06:54 Labs: Abnormal Lab Results - Last 24 Hours (Table) 01/30/20 01/30/20 01/30/20 Range/Units 15:48 16:48 19:35 WBC (3.8-10.6) k/uL Neutrophils # (1.3-7.7) k/uL Monocytes # (0-1.0) k/uL Chloride (98-107) mmol/L Carbon Dioxide (22-30) mmol/L Glucose 138 H (74-99) mg/dL Urine Protein Trace H (Negative) Ur Leukocyte Esterase Large H (Negative) Urine WBC 25 H (0-5) /hpf Urine Bacteria Rare H (None) /hpf Urine Mucus Rare H (None) /hpf Stool Occult Blood Positive H (Negative) 01/30/20 01/31/20 01/31/20 Range/Units 23:00 06:54 06:54 WBC 14.5 H 14.2 H (3.8-10.6) k/uL Neutrophils # 12.3 H 11.7 H (1.3-7.7) k/uL Monocytes # 1.1 H (0-1.0) k/uL Chloride 111 H (98-107) mmol/L Carbon Dioxide 19 L (22-30) mmol/L Glucose (74-99) mg/dL Urine Protein (Negative) Ur Leukocyte Esterase (Negative) Urine WBC (0-5) /hpf Urine Bacteria (None) /hpf Urine Mucus (None) /hpf Stool Occult Blood (Negative) Microbiology - Last 24 Hours (Table) 01/30/20 18:19 Urine Culture - Preliminary Urine,Clean Catch 01/30/20 20:21 Stool Culture - Preliminary Stool CT scan - abdomen: report reviewed (Computed tomography scan of the abdomen with findings of descending colitis) Assessment and Plan (1) Colitis Narrative/Plan: 74-year-old female presenting to the hospital with abdominal pain, blood per rectum and diarrhea resulting in a syncopal episode. Patient had a scan performed in evaluation with evidence of the descending colon colitis. No prior episodes. No chronicity to symptoms. WBC 14.2, hemoglobin 13.1, platelet count 207,000. She reports abdominal cramping diffusely across her abdomen with multiple episodes of loose watery bowel movements of bright red blood per rectum. Suspicion is for infectious or ischemic colitis, less likely inflammatory process given the acuity of symptoms. Last colonoscopy 4 years ago normal per her recollection. Current Visit: Yes Status: Acute Code(s): K52.9 - NONINFECTIVE GAS TROENTERITIS AND COLITIS, UNSPECIFIED SNOMED Code(s): 13562917 (2) Abdominal pain Current Visit: Yes Status: Acute Code(s): R10.9 - UNSPECIFIED ABDOMINAL PAIN SNOMED Code(s): 04971502 (3) Blood per rectum Current Visit: Yes Status: Acute Code(s): K62.5 - HEMORRHAGE OF ANUS AND RECTUM SNOMED Code(s): 33238001 Plan: Supportive care Clear liquid diet Continue IV fluid hydration Optimizing patient's blood pressure Continue ceftriaxone therapy and will add Flagyl Recommend 7-10 days of antibiotic therapy Patient will need repeat colonoscopy in 4-6 weeks for further evaluation Thank you for allowing us to participate in the care of the patient
[2020-02-01] MEDS: LOSARTAN 50 MG TAB PO SCH (07:43)
[2020-02-01] MEDS: PANTOPRAZOLE 40 MG TABLET PO SCH ×2 (07:43→15:58)
[2020-02-01] MEDS: amLODIPine 5 MG TAB PO SCH (07:43)
[2020-02-01] MEDS: metroNIDAZOLE-NS PMX 500 MG in SALINE 1 100ML.BAG IVPB SCH ×2 (07:43→15:58)
[2020-02-01] MEDS: ASPIRIN 81 MG PO SCH (07:43)
--- NOTE | 2020-02-01 11:26 | P.PN ---
Subjective Progress Note Date: 02/01/20 This is a pleasant 74-year-old female with documented history of hypertension, GERD. He presented to the hospital via EMS after a syncopal episode. According to the patient, she was out shopping yesterday, developed some abdominal cramping and felt as though she needed to use the restroom. Af ter getting into the restroom, she states that the cramps worsened and the pain became quite severe. She felt as though she may pass out and shortly thereafter she did. There was some question on EMS arrival as to whether or not the patient had a pulse, no CPR was performed. Patient states she has had one prior episode, very similar to this one, at which time she again had abdominal cramping with subsequent syncope. Patient denies any significant cardiac history. Her chest x-ray on presentation was normal EKG showed normal sinus rhythm with no acute changes. Orthostatics were obtained which came back to be negative. 135/90 lying 167/80 sitting and 170/80 standing. Heart rate maintain ing in the 80s she is afebrile, she did noticed this morning that she's having some bright red blood in her stool, stool for occult blood was obtained which came back to be positive. Troponins have been negative 3. Sodium 139, potassium 3.9, BUN 13, creatinine 0.73. C. diff was negative, whitney virus testing is pending. White blood cell count 14.2, hemoglobin 13.1, platelet count 207. The patient does state that she gets intermittent abdominal cramping, and does feel a little lightheaded when this happens. 02/01/2020 Patient was seen and examined this morning overall feeling significantly better than yesterday. Orthostatics came back to be negative. There were no tachycardia or bradycardia arrhythmias noted on the monitor. Echocardiogram with Doppler study showed an ejection fraction of 55-60%. CAT scan of the abdomen and pelvis was performed which revealed colitis, patient has been started on antibiotics. Blood pressure today and 43/60 lying, 169/70 sitting, 188/76 standing, heart rate in the 60s to 70s. No lab data today. Objective - Vital Signs Vital signs: Vital Signs Temp 98.1 F 02/01/20 08:19 Pulse 65 02/01/20 08:19 Resp 14 02/01/20 08:19 BP 143/62 02/01/20 08:19 Pulse Ox 94 L 02/01/20 08:19 Intake & Output 01/31/20 02/01/20 02/01/20 18:59 06:59 18:59 Intake Total 240 Output Total 1 4 Balance -1 236 Intake: Oral 240 Output: Stool 1 4 Other: Voiding Method Bedside Commode Bedside Commode # Voids 2 1 - Exam PHYSICAL EXAMINATION: GENERAL: 74-year-old female in no acute distress at the time of my examination HEENT: Head is atraumatic, normocephalic. Pupils equal, round. Sclera anicteric. Conjunctiva are clear. Mucous membranes of the mouth are moist. Neck is supple. There is no elevated jugular venous pressure. No carotid bruit is heard. HEART EXAMINATION: Heart S1, S2 normal. No murmur or gallop heard. CHEST EXAMINATION: Lungs are clear to auscultation and precussion. No chest wall tenderness is noted on palpation or with deep breathing. ABDOMEN: Soft, nontender. Bowel sounds are heard. No organomegaly noted. EXTREMITIES: 2+ peripheral pulses with no evidence of peripheral edema and no calf tenderness noted. NEUROLOGIC patient is awake, alert and oriented 3 . . - Labs CBC & Chem 7: 01/31/20 06:54 01/31/20 06:54 Labs: Abnormal Lab Results - Last 24 Hours (Table) 01/30/20 Range/Units 20:21 Stool Lactoferrin POSITIVE H (NEGATIVE) Microbiology - Last 24 Hours (Table) 01/30/20 18:19 Urine Culture - Final Urine,Clean Catch 01/30/20 17:58 Blood Culture - Preliminary Blood No Growth after 24 hours Assessment and Plan Plan: Assessment and plan #1 syncope, likely vasovagal in nature, precipitated by pain. Patient had one very similar episode in the past. We will rule out any cardiac causes. Orthostatics have been negative so far. No arrhythmias noted on the monitor. #2 hypertension #3 GERD #4 bright red bloody stools this morning stool for occult blood positive Plan Echocardiogram with Doppler study revealed a normal left ventricular systolic function. No evidence of significant orthostasis and no tachycardia or bradycardia arrhythmias have been noted. From cardiology's perspective, we would recommend on discharge the patient with 30 day event monitor. We will follow her along now here on an as-needed basis, please don't hesitate to call if you have any questions. DNP note has been reviewed, I agree with a documented findings and plan of care. Patient was seen and examined.
--- NOTE | 2020-02-01 12:32 | P.PN ---
Subjective Progress Note Date: 02/01/20 Principal diagnosis: Diarrhea, blood per rectum He patient was seen and examined at the bedside. She states she is feeling much better today. She states she had 2 small bloody bowel movements yesterday evening and one this morning. She denies any abdominal pain. States still has some mild nausea however no vomiting. She tolerated her clear liquid diet. Hemoglobin stable 13.2, WBC 14.2. Objective - Vital Signs Vital signs: Vital Signs Temp 98.1 F 02/01/20 08:19 Pulse 65 02/01/20 08:19 Resp 14 02/01/20 08:19 BP 143/62 02/01/20 08:19 Pulse Ox 94 L 02/01/20 08:19 Intake & Output 01/31/20 02/01/20 02/01/20 18:59 06:59 18:59 Intake Total 240 Output Total 1 4 Balance -1 236 Intake: Oral 240 Output: Stool 1 4 Other: Voiding Method Bedside Commode Bedside Commode # Voids 2 1 - Exam General appearance: The patient is alert, oriented, in no acute distress. HET: Head is normocephalic and atraumatic. Conjunctiva pink. Sclera and icteric. Neck: Supple without lymphadenopathy. Abdomen: Soft, nontender, nondistended with bowel sounds. No guarding or rigidity. Extremities: Normal skin color and turgor. No pedal edema Neurological: No focal deficits. Alert and oriented 3. - Labs CBC & Chem 7: 01/31/20 06:54 01/31/20 06:54 Labs: Abnormal Lab Results - Last 24 Hours (Table) 01/30/20 Range/Units 20:21 Stool Lactoferrin POSITIVE H (NEGATIVE) Microbiology - Last 24 Hours (Table) 01/30/20 18:19 Urine Culture - Final Urine,Clean Catch 01/30/20 17:58 Blood Culture - Preliminary Blood No Growth after 24 hours Assessment and Plan (1) Colitis Narrative/Plan: 74-year-old female presenting to the hospital with abdominal pain, blood per rectum and diarrhea resulting in a syncopal episode. Patient had a scan performed in evaluation with evidence of the descending colon colitis. No prior episodes. No chronicity to symptoms. WBC 14.2, hemoglobin 13.1, platelet count 207,000. She reports abdominal cramping diffusely across her abdomen with multiple episodes of loose watery bowel movements of bright red blood per rectum. Suspicion is for infectious or ischemic colitis, less likely inflammatory process given the acuity of symptoms. Last colonoscopy 4 years ago normal per her recollection. Current Visit: Yes Status: Acute Code(s): K52.9 - NONINFECTIVE GASTROENTERITIS AND COLITIS, UNSPECIFIED SNOMED Code(s): 71547184 (2) Abdominal pain Current Visit: Yes Status: Acute Code(s): R10.9 - UNSPECIFIED ABDOMINAL PAIN SNOMED Code(s): 98037773 (3) Blood per rectum Current Visit: Yes Status: Acute Code(s): K62.5 - HEMORRHAGE OF ANUS AND RECTUM SNOMED Code(s): 44445193 Plan: Supportive care Advance to soft diet Add dicyclomine 20 mg 4 times a day as needed Continue IV fluid hydration Optimizing patient's blood pressure Continue ceftriaxone therapy and will add Flagyl Recommend 7-10 days of antibiotic therapy Patient will need repeat colonoscopy in 4-6 weeks for further evaluation Thank you for allowing us to participate in the care of the patient The impression and plan of care has been dictated as directed. I performed a history and examination of this patient, discussed the same with the dictator. I agree with the dictator's note ,documented as a scribe. Any additional findings or plans will be noted.
[2020-02-01] MEDS: ACETAMINOPHEN TAB 325 MG TAB PO PRN (13:55)
[2020-02-01] MEDS: SODIUM CHLORIDE 0.9% 1,000 ML IV SCH (15:58)
--- NOTE | 2020-02-01 16:11 | P.PN ---
Subjective Progress Note Date: 02/01/20 patient was seen and examined. No acute events overnight. Patient reports improvement in her abdominal cramping. No more dizziness or syncopal episodes. She denies any chest pain, shortness breath or palpitations. No nausea or vomiting. No fever or chills. Objective - Vital Signs Vital signs: Vital Signs Temp 97.6 F 02/01/20 14:29 Pulse 74 02/01/20 14:29 Resp 14 02/01/20 14:29 BP 151/77 02/01/20 14:29 Pulse Ox 96 02/01/20 14:29 Intake & Output 01/31/20 02/01/20 02/01/20 18:59 06:59 18:59 Intake Total 240 Output Total 1 4 Balance -1 236 Intake: Oral 240 Output: Stool 1 4 Other: Voiding Method Bedside Commode Bedside Commode # Voids 2 1 2 # Bowel Movements 2 - Exam General: [non toxic], [no distress], [appears at stated age] Derm: [warm], [dry] Head: [atraumatic], [normocephalic], [symmetric] Eyes: [EOMI], [no lid lag], [anicteric sclera] Mouth: [no lip lesion], [mucus membranes moist] Cardiovascular: [S1S2 reg], [no murmur], [positive posterior tibial pulse bilateral], Lungs: [CTA bilateral], [no rhonchi, no rales] , [no accessory muscle use] Abdominal: [soft], [ nontender to palpation], [no guarding], [no appreciable organomegaly] Ext: [no gross muscle atrophy], [no edema], [no contractures] Neuro: [no focal neuro deficits] Psych: [Alert], [oriented], [appropriate affect] - Labs CBC & Chem 7: 01/31/20 06:54 01/31/20 06:54 Labs: Microbiology - Last 24 Hours (Table) 01/30/20 18:19 Urine Culture - Final Urine,Clean Catch 01/30/20 17:58 Blood Culture - Preliminary Blood No Growth after 24 hours Assessment and Plan Assessment: Syncopal episode Colitis Abnormal urinalysis Hypertension GERD Patient syncopal episode is consistent with vasovagal. Unclear EMS reports pulseless activity but did not perform CPR. Troponin is less than 0.012 3 with EKG showing normal sinus rhythm. Orthostats negative. Echocardiogram shows EF 55-60% with mild concentric LVH. Plans: Telemetry monitoring. Event monitor on discharge. Follow cardiology consultation. As seen on CT AP. Plans: Started on Rocephin and Flagyl IV. Follow GI consul tation. Urinalysis shows large leukocyte esterase. Plans: Patient with no urinary complaints. Continue Rocephin. Follow urine culture. BP 151/77. Plans: Restart amlodipine and losartan. Restart metoprolol. Monitor vitals, adjust medications if necessary. Plans: Protonix by mouth. DVT prophylaxis: [SCD boots] Discussed with: [Patient] Anticipated discharge: [1-2 days] Anticipated discharge place: [Home] A total of [35] minutes was spent on the care of this complex patient more than 50% of the time was spent in counseling and care coordination. Patient would like to be full code. She names her son Yifan and build decision- makers if she can't make decisions for herself. [Patient admitted for syncopal episode. Likely vasovagal. Found to have c olitis. On IV antibiotics. GI following. She is pending clinical improvement. Likely DC 1-2 days.]
[2020-02-01] MEDS ORDERED: DICYCLOMINE 20 MG TAB PO PRN (16:39)
[2020-02-01] MEDS: ONDANSETRON 4 MG/2 ML VIAL IVP PRN (18:34)
[2020-02-01] MEDS: METOPROLOL SUCCINATE (ER) 50 MG TAB.ER.24H PO SCH (21:08)
[2020-02-02] MEDS: metroNIDAZOLE-NS PMX 500 MG in SALINE 1 100ML.BAG IVPB SCH ×2 (00:11→07:41)
[2020-02-02] MEDS: ONDANSETRON 4 MG/2 ML VIAL IVP PRN ×2 (01:22→07:41)
[2020-02-02 07:35] VITALS: BP 134/62; PULSE 77; RESP 16; TEMP 98
[2020-02-02] MEDS: amLODIPine 5 MG TAB PO SCH (07:41)
[2020-02-02] MEDS: ASPIRIN 81 MG PO SCH (07:41)
[2020-02-02] MEDS: LOSARTAN 50 MG TAB PO SCH (07:41)
[2020-02-02 09:09] LABS: HCT 38.8 % (34.0-46.0); HGB 12.2 gm/dL (11.4-16.0); MCHC 31.5 g/dL (31.0-37.0); MCV 92.2 fL (80.0-100.0); Mean Platelet Volume 8.1; Platelet Count 220 k/uL (150-450); RBC 4.21 m/uL (3.80-5.40); RDW 13.1 % (11.5-15.5); WBC 12.5 k/uL (3.8-10.6)
[2020-02-02] MEDS: PANTOPRAZOLE 40 MG TABLET PO SCH (09:11)
--- NOTE | 2020-02-02 10:08 | P.PN ---
Subjective Progress Note Date: 02/02/20 Principal diagnosis: Diarrhea, blood per rectum He patient was seen and examined at the bedside. She states she is feeling much better today. She states she had a soft bowel movement, that is more formed and non-bloody. She dates her abdominal cramping has improved with the dicyclomine. States still has some mild nausea however no vomiting. He is tolerating her diet. She has been afebrile with no acute changes through the night. Objective - Vital Signs Vital signs: Vital Signs Temp 98 F 02/02/20 07:29 Pulse 77 02/02/20 07:29 Resp 16 02/02/20 07:29 BP 134/62 02/02/20 07:29 Pulse Ox 95 02/02/20 07:29 Intake & Output 02/01/20 02/02/20 02/02/20 18:59 06:59 18:59 Other: Voiding Method Bedside Commode Bedside Commode # Voids 2 1 # Bowel Movements 2 1 - Exam General appearance: The patient is alert, oriented, in no acute distress. HET: Head is normocephalic and atraumatic. Conjunctiva pink. Sclera and icteric. Neck: Supple without lymphadenopathy. Abdomen: Soft, nontender, nondistended with bowel sounds. No guarding or rigidity. Extremities: Normal skin color and turgor. No pedal edema Neurological: No focal deficits. Alert and oriented 3. - Labs CBC & Chem 7: 02/02/20 08:51 01/31/20 06:54 Labs: Abnormal Lab Results - Last 24 Hours (Table) 02/02/20 Range/Units 08:51 WBC 12.5 H (3.8-10.6) k/uL Microbiology - Last 24 Hours (Table) 01/30/20 20:21 Stool Culture - Preliminary Stool 01/30/20 17:58 Blood Culture - Preliminary Blood No Growth after 48 hours Assessment and Plan (1) Colitis Narrative/Plan: 74-year-old female presenting to the hospital with abdominal pain, blood per rectum and diarrhea resulting in a syncopal episode. Patient had a scan performed in evaluation with evidence of the descending colon colitis. No prior episodes. No chronicity to symptoms. WBC 14.2, hemoglobin 13.1, platelet count 207,000. She reports abdominal cramping diffusely across her abdomen with multiple episodes of loose watery bowel movements of bright red blood per rectum. Suspicion is for infectious or ischemic colitis, less likely inflammatory process given the acuity of symptoms. Last colonoscopy 4 years ago normal per her recollection. Status: Acute Code(s): K52.9 - NONINFECTIVE GASTROENTERITIS AND COLITIS, UNSPECIFIED SNOMED Code(s): 72335285 (2) Abdominal pain Status: Acute Code(s): R10.9 - UNSPECIFIED ABDOMINAL PAIN SNOMED Code(s): 00794415 (3) Blood per rectum Status: Acute Code(s): K62.5 - HEMORRHAGE OF ANUS AND RECTUM SNOMED Code(s): 13876648 Plan: Supportive care Advance to soft diet Add dicyclomine 20 mg 4 times a day as needed Optimizing patient's blood pressure Continue ceftriaxone therapy and will add Flagyl Recommend 7-10 days of antibiotic therapy Patient will need repeat colonoscopy in 4-6 weeks for further evaluation Patient may be discharged home from a gastroenterology standpoint. The above dictated assessment and findings were discussed with Dr. Zimmerman. The impression and plan of care have been directed as dictated.
--- NOTE | 2020-02-02 15:24 | P.DS ---
Providers Date of admission: 02/02/20 08:45 Expected date of discharge: 02/02/20 Attending physician: Oscar Alexandre MD Consults: 01/31/20 09:49 Consult Physician Routine Consulting Provider: Ryley Zimmerman Consult Reason/Comments: bloody stool Do you want consulting provider notified?: Yes Primary care physician: [facility] Course: 74-year-old female with PMH of hypertension presents the ED after syncopal episode. Patient states that she experienced lower abdominal cramping and thought that she had to use the washroom. She went to the toilet and states that she strained to have a bowel movement. Suddenly, she started experiencing lightheadedness along with nausea and sweating. She was able to lean up against the wall. She denies any head trauma. There was no bladder or bowel incontinence. There is no seizure-like activity. Patient was able to call for help and EMS was called. When EMS arrived, stated that patient lost consciousness for 5 minutes. There is also reports that patient lost her pulse. It is unclear why CPR was not performed. She was able to regain consciousness with EMS. Patient continues to report bilateral lower abdominal cramping along with nausea. States that she had 3 bowel movements today, loose stool. She denies any headache, lower extremity edema, fever or chills, cough, chest pain, shortness of breath. No changes in appetite or weight. She denies any numbness/weakness/tingling of the extremities. She denies any slurred speech or confusion. In the ED, her vital signs were stable. Orthostatic vitals were negative. CBC was unremarkable. CMP showed glucose of 138. Troponin was less than 0.012, EKG showing normal sinus rhythm. Urinalysis showed large leukocyte esterase. Chest x-ray showed chronic changes. Patient is admitted after syncopal episode for further workup and cardiology evaluation. Her syncopal episode was consistent with vasovagal. Troponins were cycled 3 and were negative with EKG showing normal sinus rhythm. Orthostats were negative. Echo heart exam showed EF 55-60% with mild concentric LVH. Patient was advised event monitor on discharge. With regard to her abdominal cramping and loose stool, CT abdomen and pelvis was performed. Stool for occult blood was positive. CTAP showed colitis. She was started on Rocephin and Flagyl IV. GI was consulted and recommended conservative management and to follow-up in the outpatient setting for colonoscopy in 4-6 weeks. Patient was seen and examined. No acute events overnight. Patient reports improvement in her abdominal cramping. She denies any chest pain, shortness breath or palpitations. No nausea or vomiting. No fever or chills. No dizziness or syncopal episodes. General: [non toxic], [no distress], [appears at stated age] Derm: [warm], [dry] Head: [atraumatic], [normocephalic], [symmetric] Eyes: [EOMI], [no lid lag], [anicteric sclera] Mouth: [no lip lesion], [mucus membranes moist] Cardiovascular: [S1S2 reg], [no murmur], [positive posterior tibial pulse bilateral], Lungs: [CTA bilateral], [no rhonchi, no rales] , [no accessory muscle use] Abdominal: [soft], [ nontender to palpation], [no guarding], [no appreciable organomegaly] Ext: [no gross muscle atrophy], [no edema], [no contractures] Neuro: [no focal neuro deficits] Psych: [Alert], [oriented], [appropriate affect] Syncopal episode Colitis Abnormal urinalysis Hypertension GERD Patient syncopal episode is consistent with vasovagal. Unclear EMS reports pulseless activity but did not perform CPR. Troponin is less than 0.012 3 with EKG showing normal sinus rhythm. Orthostats negative. Echocardiogram shows EF 55-60% with mild concentric LVH. Plans: Telemetry monitoring. Event monitor on discharge. Follow cardiology consultation. As seen on CT AP. Plans: DC on Flagyl and Cipro for 7 days. Follow GI in 4-6 weeks for colonoscopy. Urinalysis shows large leukocyte esterase. Plans: Patient with no urinary complaints. Continue Rocephin. Urine culture neg. BP 134/62. Plans: Restart amlodipine and losartan. Restart metoprolol. Monitor vitals, adjust medications if necessary. Plans: Protonix by mouth. DVT prophylaxis: [SCD boots] Discussed with: [Patient] Anticipated discharge: [1-2 days] Anticipated discharge place: [Home] A total of [35] minutes was spent on the care of this complex patient more than 50% of the time was spent in counseling and care coordination. Patient would like to be full code. She names her son Yifan and build decision- makers if she can't make decisions for herself. [Patient admitted for syncopal episode. Likely vasovagal. Found to have colitis. Anticipate DC home today on oral Abx. FU Cardiology and GI in the outpatient setting. No ETOH with Flagyl patient advised. She verbalized understanding of the plan. This complex DC took about 35 minutes to complete. ] Pertinent Studies: chest x-ray, echocardiogram, CT abdomen and pelvis Patient Condition at Discharge: Stable Plan - Discharge Summary Discharge Rx Participant: No New Discharge Prescriptions: New Ciprofloxacin HCl [Cipro] 500 mg PO Q12H 7 Days #14 tab metroNIDAZOLE [Flagyl] 500 mg PO Q8HR #21 tab Dicyclomine [Bentyl] 20 mg PO QID PRN #30 tab PRN Reason: Dyspepsia Continue Vitamin C/Biotin [Hair, Skin and Nails] 1 tab PO DAILY Vit A/Vit C/Vit E/Zinc/Copper [ICAPS SOFTGEL] 1 cap PO DAILY Cholecalciferol [Vitamin D3 (25 Mcg = 1000 Iu)] 1,000 unit PO DAILY Acetaminophen Tab [Tylenol] 500 mg PO Q6H Metoprolol Succinate (ER) [Toprol XL] 50 mg PO HS Losartan Potassium 50 mg PO DAILY Calcium Carbonate [Calcium] 600 mg PO DAILY Aspirin EC [Ecotrin Low Dose] 81 mg PO DAILY amLODIPine [Norvasc] 5 mg PO DAILY Potassium Gluconate 99 mg PO DAILY Candesartan Cilexetil 8 mg PO DAILY PRN PRN Reason: high blood pressure Discharge Medication List Acetaminophen Tab [Tylenol] 500 mg PO Q6H 01/30/20 [History] Aspirin EC [Ecotrin Low Dose] 81 mg PO DAILY 01/30/20 [History] Calcium Carbonate [Calcium] 600 mg PO DAILY 01/30/20 [History] Candesartan Cilexetil 8 mg PO DAILY PRN 01/30/20 [History] Cholecalciferol [Vitamin D3 (25 Mcg = 1000 Iu)] 1,000 unit PO DAILY 01/30/20 [History] Losartan Potassium 50 mg PO DAILY 01/30/20 [History] Metoprolol Succinate (ER) [Toprol XL] 50 mg PO HS 01/30/20 [History] Potassium Gluconate 99 mg PO DAILY 01/30/20 [History] Vit A/Vit C/Vit E/Zinc/Copper [ICAPS SOFTGEL] 1 cap PO DAILY 01/30/20 [History] Vitamin C/Biotin [Hair, Skin and Nails] 1 tab PO DAILY 01/30/20 [History] amLODIPine [Norvasc] 5 mg PO DAILY 01/30/20 [History] Ciprofloxacin HCl [Cipro] 500 mg PO Q12H 7 Days #14 tab 02/01/20 [Rx] metroNIDAZOLE [Flagyl] 500 mg PO Q8HR #21 tab 02/01/20 [Rx] Dicyclomine [Bentyl] 20 mg PO QID PRN #30 tab 02/02/20 [Rx] Follow up Appointment(s)/Referral(s): Treasure Clarke DO [Primary Care Provider] - 02/07/20 2:00 pm (With Mandeep ABBOTT) Ryley Zimmerman MD [STAFF PHYSICIAN] - 4 Weeks (Call office to schedule outpatient colonoscopy in 4-6 weeks, does not need office appointment) Patient Instructions/Handouts: Syncope (DC), Colitis (ED) Activity/Diet/Wound Care/Special Instructions: Diet: GI soft FU PCP within 3 days. FU GI within 1 week. Come back to the ED for worsening abdominal pain, Fever > 100.4F, intractable N/V, uncontrolled hematochezia Discharge Disposition: HOME SELF-CARE
--- NOTE | 2020-02-04 21:31 | CDI ---
Documentation Clarification Form Date: 02/05/2020 From: Javier Baugh Phone: If you have a question about this query, please contact Myra Dougherty, [employer]ish Blender at [phone] between 8am and 5pm. Admit Date: 01/30/2020 Discharge Date: 02/02/2020 Patient Name: Jessie Cat Visit Number: [id number] ATTENTION: The Clinical Documentation Specialists (CDI) and [facility] Coding Staff appreciate your assistance in clarifying documentation. Please respond to the clarification below the line at the bottom and electronically sign. The CDI & [facility] Coding staff will review the response and follow-up if needed. Please note: Queries are made part of the Legal Health Record. If you have any questions, please contact the author of this message via ITS. Dear Renata Montemayor MD., The patient presented with Syncope and found to have Colitis History/Risk Factors: GERD, Appendectomy, Cholecystectomy. Clinical Indicators: Syncope, abdominal cramping, colitis Dr. Zimmerman notes Colitis is "Suspicion is for infectious or ischemic colitis, less likely inflammatory process given the acuity of symptoms". Per DS notes "Patient admitted for syncopal episode.Likely vasovagal. Found to have colitis.Anticipate DC home today on oral Abx". In your professional opinion, can you please clarify Colitis related Suspicious Infectious or Ischemic Per GI? YES (Colitis either infectious or ischemic) NO (Colitis alone) Other, please specify Unable to determine NO (colitis alone) MTDD
== END 2020-02-02 12:00 | disposition home or self-care (01) | DRG 392 ==
LOC: EC 14:47 → 1SOBS 17:31 → OBSVTOIN 02-02 08:45
PROVIDERS: ADMIT Family Medicine; ATTEND Family Medicine
DX: K52.9 Noninfective gastroenteritis and colitis, unspecified (principal); R55 Syncope and collapse; K21.9 Gastro-esophageal reflux disease without esophagitis; I10 Essential (primary) hypertension; Z20.828 Contact with and (suspected) exposure to other viral communicable diseases; R82.90 Unspecified abnormal findings in urine; Z79.82 Long term (current) use of aspirin; Z79.899 Other long term (current) drug therapy; Z90.49 Acquired absence of other specified parts of digestive tract; Z82.49 Family history of ischemic heart disease and other diseases of the circulatory system; Z80.8 Family history of malignant neoplasm of other organs or systems
CPT/HCPCS: 36415; 71045; 74177; 80048; 80053; 81001; 82272; 83605; 83630; 83690; 83735; 84484; 85025; 85027; 85610; 85730; 87040; 87045; 87046; 87086; 87324; 93005; 93270; 93306; 96374; 99285

== ENCOUNTER → 2020-04-12 | Outpatient (CLI) | payer MEDICARE ==
--- NOTE | 2020-04-17 14:05 | PE ---
Nuclear medicine PET/CT HISTORY: Solitary pulmonary nodule, initial Patient received 13 mCi F-18 FDG intravenously in delayed scanning was performed from skull base to t he mid thighs. Localization and attenuation correction CT scan was performed. Correlation CT abdomen pelvis 01/31/2020 Chest and neck: There is no cervical or supraclavicular adenopathy, no mediastinal, axillary, or carmelita r adenopathy, no suspicious uptake. Calcified right hilar nodes are present. There is no pleural whitney cardial effusion. Some apical pleural scarring is present. No suspicious hypermetabolic uptake. Calci fied perihilar nodule likely represents granuloma on the right. ABDOMEN: There is no ascites or retroperitoneal adenopathy. Patient is post cholecystectomy. No suspi cious uptake is evident. Calcifications are present within the spleen. No pelvic adenopathy. Osseous structures show degenerative disc changes and facet arthropathy in the lumbar spine, there is a mild spinal curvature. No suspicious uptake. IMPRESSION: Old granulomatous disease. No suspicious uptake.
== END | disposition home or self-care (01) ==
LOC: RADPETMAIN 13:39
PROVIDERS: ATTEND Internal Medicine Critical Care Medicine
DX: R91.1 Solitary pulmonary nodule (principal); Z87.09 Personal history of other diseases of the respiratory system
CPT/HCPCS: 78815; A9552

== ENCOUNTER 2020-05-09 09:40 | Day surgery (SDC) | payer MEDICARE ==
[2020-05-06 16:04] VITALS: BMI 23.3
[~2020-05-09 09:40] MED LIST: LACTATED RINGERS 1,000 ML IV SCH; LIDOCAINE 1% (10MG/ML) FOR IV START INTRADERMA PRN
[2020-05-09 10:02] VITALS: RESP 16; TEMP 98
[2020-05-09] MEDS ORDERED: LIDOCAINE 1% INJ 10MG/ML (20 ML MDV) ONE (10:36)
[2020-05-09] MEDS ORDERED: PROPOFOL 10 MG/ML 20 ML VIAL IV ONE (10:36)
--- NOTE | 2020-05-09 11:36 | P.PCN ---
Date of Procedure: 05/09/20 Description of Procedure: Brief history: Patient is a pleasant 74-year-old female presenting for outpatient EGD and colonoscopy for evaluation of GERD and noninfective gastroenteritis and colitis. Patient was seen in the hospital on 01/2020 for diarrhea abdominal pain and blood per rectum with findings of left-sided colitis likely ischemic in nature. He completed a course of antibiotic therapy. Symptoms improved. Last colonoscopy 10 years ago. She also has a history of reflux disease with f requent breakthrough symptoms. She is on omeprazole therapy and has been given famotidine for breakthrough symptoms. Procedure performed: Esophagogastroduodenoscopy with biopsy Colonoscopy Estimated blood loss: Minimal. Preoperative diagnosis: GERD, noninfective gastroenteritis and colitis, colitis, abnormal computed tomography scan abdomen, less colonoscopy 10 years ago Anesthesia: MAC Procedure: After informed consent was obtained from the patient was brought into the endoscopy unit and IV sedation was administered by anesthesia under continuous monitoring. Initially upper endoscopy was done. The Olympus GF 190 video endoscope was inserted into the mouth and esophagus intubated without any difficulty and was gradually advanced into the stomach and duodenum and carefully examined. The bulb and second part of the duodenum appeared normal, with biopsies taken. The scope was then withdrawn into the stomach adequately insufflated with air and upon careful examination the antrum and body, cardia and fundus appeared normal, except for some mild scattered erythema in the antrum and body suggestive of mild gastritis with biopsies taken. The scope was then withdrawn into the esophagus. The GE junction was located at 40 cm to the incisors and biopsied. It appeared regular with no erythema erosions or ulcerations. Rest of the esophagus appeared normal. Patient tolerated the procedure well. At this time the patient continued to remain sedation. Initial digital rectal examination was normal. Olympus CF 190 video colonoscope was then inserted into the rectum and gradually advanced to the cecum without any difficulty. Careful examination was performed as the scope was gradually being withdrawn. The prep was excellent. The cecum, ascending colon, transverse colon, descending colon, sigmoid colon and rectum appeared normal. Retroflexion was performed in the rectum and no lesions were noted, low-grade internal hemorrhoids. Patient tolerated the procedure well. Impression: 1. Mild gastritis. Biopsies of the duodenum, antrum body and GE junction. 2. Normal-appearing colon from rectum to cecum. Low-grade internal hemorrhoids. Recommendations: Findings of this examination were discussed with the patient. Okay to resume diet. Okay to resume medications. When pathology from biopsies. Follow up in GI clinic as scheduled.
[2020-05-09 12:02] VITALS: BP 180/84; PULSE 80
== END 2020-05-09 12:07 | disposition home or self-care (01) ==
LOC: ORWHC2ENDO 09:40
PROVIDERS: ATTEND Internal Medicine
DX: K64.8 Other hemorrhoids (principal); K29.70 Gastritis, unspecified, without bleeding; K21.00 Gastro-esophageal reflux disease with esophagitis, without bleeding; I10 Essential (primary) hypertension; Z87.19 Personal history of other diseases of the digestive system; Z98.890 Other specified postprocedural states; Z79.899 Other long term (current) drug therapy; Z79.82 Long term (current) use of aspirin; Z90.49 Acquired absence of other specified parts of digestive tract
CPT/HCPCS: 88305; 45378; 43239; J2001; J2704

== ENCOUNTER → 2023-04-02 | Outpatient (CLI) | payer MEDICARE ==
--- NOTE | 2023-04-02 10:40 | US ---
EXAMINATION TYPE: US renal artery duplex complet DATE OF EXAM: 04/02/2023 COMPARISON: 01/31/2020 CLINICAL INDICATION: Female, 77 years old with history of I70.1 ATHEROSCLEROSIS OF RENAL ARTERY; MEASUREMENTS: RENAL SIZE: Right Kidney: 10.2 x 4.3 x 5.1cm Left Kidney: 10.4 x 4.6 x 4.3cm Right Kidney: fullness of renal pelvis Left Kidney: fullness of renal pelvis, proximal renal vein not seen due to overlying bowel gas RESISTANCE INDEX Right: 0.72 Left: 0.70 RA/AO RATIO (< 3.5 ) Right: 1.9 Left: 1.7 RENAL ARTERY VELOCITY ( < 180 cm/s) Right: 156.4 Left: 139.9 Cooky Packer Notes: IMPRESSION: No evidence for renal artery stenosis.
== END | disposition home or self-care (01) ==
LOC: RADUSWWP 07:54
PROVIDERS: ATTEND Internal Medicine Clinical Cardiac Electrophysiology
DX: I70.1 Atherosclerosis of renal artery (principal)
CPT/HCPCS: 93975

== ENCOUNTER 2023-06-03 06:46 | Day surgery (SDC) | payer MEDICARE ==
[2023-05-28 12:12] VITALS: BMI 24.7
[2023-06-03] MEDS: SODIUM CHLORIDE 0.9% 1,000 ML IV ONE (07:24)
[2023-06-03 07:47] LABS: ALT 14 U/L (4-34); AST 24 U/L (14-36); African American GFR (CKD) >90 (>60 ml/min/1.73 sqM); Albumin 4.6 g/dL (3.5-5.0); Alkaline Phosphatase 89 U/L (38-126); Anion Gap 8 mmol/L; Blood Urea Nitrogen 9 mg/dL (7-17); Calcium 9.6 mg/dL (8.4-10.2); Carbon Dioxide 27 mmol/L (22-30); Chloride 105 mmol/L (98-107); Glucose 104 mg/dL (74-99); Non-African American GFR(CKD) 82 (>60 ml/min/1.73 sqM); Potassium 3.7 mmol/L (3.5-5.1); Sodium 140 mmol/L (137-145); Total Bilirubin 0.7 mg/dL (0.2-1.3); Total Protein 7.6 g/dL (6.3-8.2)
[2023-06-03 07:56] LABS: Basophils % (A) 0 %; Eosinophils # (A) 0.1 k/uL (0-0.7); Eosinophils % (A) 2 %; HGB 13.7 gm/dL (11.4-16.0); Lymphocytes # (A) 1.3 k/uL (1.0-4.8); Lymphocytes % (A) 22 %; MCH 30.3 pg (25.0-35.0); MCHC 32.6 g/dL (31.0-37.0); MCV 93.2 fL (80.0-100.0); Mean Platelet Volume 9.2; Monocytes # (A) 0.8 k/uL (0-1.0); Monocytes % (A) 13 %; Neutrophils # (A) 3.6 k/uL (1.3-7.7); Neutrophils % (A) 60 %; Platelet Count 302 k/uL (150-450); RDW 13.3 % (11.5-15.5)
[2023-06-03] MEDS ORDERED: ISOPROTERENOL 250 MCG/1.25 ML SYR IV ONE (10:59)
[2023-06-03] MEDS ORDERED: MIDAZOLAM 2 MG/2 ML VIAL ONE (10:59)
[2023-06-03] MEDS ORDERED: PROPOFOL 10 MG/ML 20 ML VIAL IV ONE (10:59)
[2023-06-03] MEDS ORDERED: fentaNYL (PF) 50 MCG/ML 2 ML AMP ONE (10:59)
--- NOTE | 2023-06-03 11:19 | P.HPCAR ---
History of Present Illness This is Dr. Piper dictating an H/P on this patient The patient was interviewed and examined IMPRESSION / ASSESSMENT: Recurrent palpitations, Recurrent SVT Hypertension History of syncope PLAN: Diagnostic EP study and possible radiofrequency ablation HPI Patient continues to experience episodes of palpitations. She had another episode that started last night lasting several hours and she spontaneously converted to sinus rhythm She was quite symptomatic once again complaining of shortness of breath and a rapid heartbeat Denies any fever chills cough expectoration ROS: No fever chills or rigors, no cough, phlegm or expectoration, no nausea, vomiting or diarrhea, no hematuria, dysuria, no musculoskeletal complaints, no strokes or seizures, no skin lesions. EXAMINATION: No JVD no hepatojugular reflux Abdomen soft nontender Normal heart sounds normal S1 normal S2 Breath sounds are clear Extremities warm no edema Systolic blood pressure 158 mmHg, diastolic 70 to REVIEW OF LABS, ECG & MEDICAL DATA Normal TSH Normal CBC Normal electrolytes and CMP Physical Exam Vitals: Vital Signs Temp Pulse Resp BP Pulse Ox 06/03/23 07:30 98.2 F 98 16 158/72 98 Intake and Output 06/02/23 06/03/23 06/03/23 22:59 06:59 14:59 Intake Total 0 Balance 0 Intake: IV 0 Other: Weight 65.5 kg Past Medical History Past Medical History: GERD/Reflux, Hyperlipidemia, Hypertension Additional Past Medical History / Comment(s): SEE DR. COLE H &P History of Any Multi-Drug Resistant Organisms: None Reported Past Surgical History: Appendectomy, Cholecystectomy Additional Past Surgical History / Comment(s): COLONOSCOPY, EGD, Past Anesthesia/Blood Transfusion Reactions: No Reported Reaction Smoking Status: Never smoker - Past Family History Mother Family Medical History: Cancer Additional Family Medical History / Comment(s): bone cancer Father Family Medical History: Hypertension Additional Family Medical History / Comment(s): aneurysm Sister(s) Family Medical History: Hypertension Brother(s) Family Medical History: Cancer, Coronary Artery Disease (CAD) Additional Family Medical History / Comment(s): bone cancer, cabg Son(s) Family Medical History: No Reported History Physical Examination Vital Signs Temp Pulse Resp BP Pulse Ox 06/03/23 07:30 98.2 F 98 16 158/72 98 Intake and Output 06/02/23 06/03/2306/03/24 22:59 06:59 14:59 Intake Total 0 Balance 0 Intake: IV 0 Other: Weight 65.5 kg Results 06/03/23 07:20 06/03/23 07:20 Cardiac Enzymes 06/03/23 Range/Units 07:20 AST 24 (14-36) U/L CBC 06/03/23 Range/Units 07:20 WBC 6.0 (3.8-10.6) k/uL RBC 4.50 (3.80-5.40) m/uL Hgb 13.7 (11.4-16.0) gm/dL Hct 42.0 (34.0-46.0) % Plt Count 302 (150-450) k/uL Comprehensive Metabolic Panel 06/03/23 Range/Units 07:20 Sodium 140 (137-145) mmol/L Potassium 3.7 (3.5-5.1) mmol/L Chloride 105 (98-107) mmol/L Carbon Dioxide 27 (22-30) mmol/L BUN 9 (7-17) mg/dL Creatinine 0.71 (0.52-1.04) mg/dL Glucose 104 H (74-99) mg/dL Calcium 9.6 (8.4-10.2) mg/dL AST 24 (14-36) U/L ALT 14 (4-34) U/L Alkaline Phosphatase 89 (38-126) U/L Total Protein 7.6 (6.3-8.2) g/dL Albumin 4.6 (3.5-5.0) g/dL Current Medications Generic Name Dose Route Start Last Admin Trade Name Estephania PRN Reason Stop Dose Admin Sodium Chloride 1,000 mls @ 50 mls/hr 06/03/23 05:55 Saline 0.9% IV 07/03/23 05:56 .Q20H ANA Intake and Output 06/02/23 06/03/23 06/03/23 22:59 06:59 14:59 Intake Total 0 Balance 0 Intake: IV 0 Other: Weight 65.5 kg Patient Weight 06/04/23 06:59 Weight 65.5 kg 06/03/23 07:20 06/03/23 07:20
[2023-06-03] MEDS: LIDOCAINE 1% INJ 10MG/ML (20 ML MDV) SQ ONE (11:33)
[2023-06-03] MEDS: HEPARIN SODIUM (1,000 UNIT/ML) 1,000 UNIT in SODIUM CHLORIDE 0.9% 1,000 ML IRRIGATION ONE (12:00)
[2023-06-03] MEDS ORDERED: ACETAMINOPHEN TAB 325 MG TAB PO PRN (14:31)
--- NOTE | 2023-06-03 14:43 | P.PRLE ---
RE: Jessie Cat Dear Dr. Benito Roman underwent a diagnostic EP study for recurrent symptomatic SVT She had an inducible focal atrial tachycardia originating from the posterior wall of the right atrium and she underwent successful mapping and ablation for this atrial tachycardia She will continue with her antihypertensive therapy including valsartan and amlodipine but I will reduce the dose of metoprolol to 25 mg p.o. daily After 6 to 8 weeks this can be discontinued completely Since she did not have any inducible atrial fibrillation, Eliquis will be discontinued unless there is a separate reason to continue it Thank you for entrusting me with the care of the patient Warm regards Sincerely Smooth Piper
--- NOTE | 2023-06-03 14:53 | P.EPPROC ---
- EP Procedure Note Electrophysiology Procedure Note: Diagnosis Recurrent SVT, symptomatic refractory to treatment Final diagnosis Focal atrial tachycardia from the posterior right atrial wall, mid RA Inducible with burst stimulation on Isopril Successful mapping and radiofrequency ablation, tachycardia rendered noninducible Details Patient was brought to the EP lab in a fasting state. Written informed consent was obtained prior to the procedure. Venous sheaths were placed in the right left femoral veins. Diagnostic catheters were positioned in the high right atrium, His bundle area, coronary sinus and right ventricle Sinus cycle length 680 ms, MI interval 155 ms, QRS 106 and QT 380 ms AH 95 and HV 36 ms Sinus node recovery times at 600, 500 and, 400 ms were 821 ms, 916 ms and 855 ms AV node Wenckebach block 340 ms VA Wenckebach block 400 ms No evidence for antegrade slow pathway conduction Para-Hisian pacing revealed a caroline response With ventricular extra stimulation the retrograde conduction was midline and decremental Atrial stimulation was performed from the high right atrium and coronary sinus Noninducible in the baseline state High-dose Isopril used Atrial tachycardia from the right atrium was inducible but only in long nonsustained bursts, on Isopril with burst stimulation from the high right atrium The tachycardia was induced repeatedly Painstaking mapping was performed using Penta ray catheter since these episodes of tachycardia were short and would not terminate easily when the catheter was removed Detailed mapping revealed a focal atrial tachycardia in the posterior wall of the mid right atrium Phrenic nerve was tested around this area and there was no evidence for capture of the phrenic nerve RF ablation was performed at the earliest site of activation and then bolus lesions are applied around it since this was a somewhat broad area of activation Successful ablation was performed Following that on high-dose lisinopril both at peak Isopril and during the washout, no further SVT was inducible Patient tolerated procedure well without any acute complications All catheters removed, venous punctures closed with Vascade
[2023-06-03] MEDS: ACETAMINOPHEN IV (For NPO) 1,000 MG in EMPTY BAG 1 BAG IVPB ONE (19:27)
[2023-06-03] MEDS: VALSARTAN 160 MG TAB PO SCH (19:54)
[2023-06-03] MEDS: METOPROLOL SUCCINATE (ER) 25 MG TAB.ER.24H PO SCH (19:54)
[2023-06-04] MEDS: SODIUM CHLORIDE 0.9% 1,000 ML IV SCH (02:01)
[2023-06-04 07:57] VITALS: BP 131/72; PULSE 78; RESP 19; TEMP 98
--- NOTE | 2023-06-04 07:58 | P.DS ---
Providers Attending physician: Smooth Piper Primary care physician: [facility] Course: Patient is doing well No chest discomfort dizziness lightheadedness No shortness of breath She is ambulated to the bathroom On examination her blood pressure is 131/72 mmHg pulse rate in the 70s afebrile Normal heart sounds no rub no S3 gallop no murmurs Lungs are clear no rhonchi no crackles Groins have healed well no hematoma Impression Right atrial tachycardia, focal, posterior wall Status post ablation, successful No evidence for atrial fibrillation at EP study Hypertension Dyslipidemia Normal TSH of 2.5 Normal electrolytes and liver function tests Normal hemoglobin Plan Discontinue Eliquis No indication for aspirin Increase pravastatin to 20 mg p.o. daily Continue antihypertensive therapy with valsartan 320 mg p.o. daily and amlodipine 5 mg daily Reduce the dose of metoprolol to 25 mg p.o. daily In the future watch for episodes of atrial fibrillation Hypertension management Cardiovascular risk management Patient Condition at Discharge: Stable Plan - Discharge Summary Discharge Rx Participant: No New Discharge Prescriptions: New RX: Metoprolol Succinate [Metoprolol Succinate ER] 25 mg PO DAILY #90 tab Discontinued RX: Metoprolol Succinate (ER) [Toprol XL] 50 mg PO HS RX: Losartan Potassium 50 mg PO DAILY Apixaban [Eliquis] 5 mg PO BID No Action RX: Vit A/Vit C/Vit E/Zinc/Copper [ICAPS SOFTGEL] 1 cap PO DAILY RX: Cholecalciferol [Vitamin D3 (25 Mcg = 1000 Iu)] 1,000 unit PO DAILY RX: Calcium Carbonate [Calcium] 600 mg PO DAILY RX: amLODIPine [Norvasc] 5 mg PO DAILY Omeprazole [PriLOSEC] 40 mg PO DAILY oxyBUTYnin chloride [Ditropan] 5 mg PO HS Pravastatin Sodium [Pravachol] 10 mg PO DAILY Cyanocobalamin [Vitamin B-12] 500 mcg PO DAILY RX: Valsartan 160 mg PO BID Multivit-Min/Folic Acid/Biotin [Hair, Skin and Nails Softgel] 133.3 mcg PO DAILY Discharge Medication List RX: Calcium Carbonate [Calcium] 600 mg PO DAILY 01/30/20 [History] RX: Cholecalciferol [Vitamin D3 (25 Mcg = 1000 Iu)] 1,000 unit PO DAILY 01/30/20 [History] RX: Vit A/Vit C/Vit E/Zinc/Copper [ICAPS SOFTGEL] 1 cap PO DAILY 01/30/20 [History] RX: amLODIPine [Norvasc] 5 mg PO DAILY 01/30/20 [History] Omeprazole [PriLOSEC] 40 mg PO DAILY 05/06/20 [History] Cyanocobalamin [Vitamin B-12] 500 mcg PO DAILY 05/28/23 [History] Multivit-Min/Folic Acid/Biotin [Hair, Skin and Nails Softgel] 133.3 mcg PO DAILY 05/28/23 [History] Pravastatin Sodium [Pravachol] 10 mg PO DAILY 05/28/23 [History] RX: Valsartan 160 mg PO BID 05/28/23 [History] oxyBUTYnin chloride [Ditropan] 5 mg PO HS 05/28/23 [History] RX: Metoprolol Succinate [Metoprolol Succinate ER] 25 mg PO DAILY #90 tab 12/17 [Rx] Follow up Appointment(s)/Referral(s): Smooth Piper MD [STAFF PHYSICIAN] - 1 Week Activity/Diet/Wound Care/Special Instructions: Post EP study - Ablation instructions 1. Keep access sites dry for 2 days. 2. No heavy lifting or straining for 2 days. 3. Avoid bending the hips repeatedly for 2 days. 4. You may go up and down stairs slowly Call if the following is noted 1. Bleeding, increasing swelling or pain at the access sites. 2. Increasing chest discomfort, especially upon taking a deep breath. 3. Increasing shortness of breath, at rest or with exertion. 4. Undue cough / phlegm 5. Difficulty or pain while swallowing. 6. Pain or change in color in the extremities. 7. Fever, chills, rigors. 8. Increasing headache or neurologic symptoms. 9. Dizziness, fainting, palpitations Reduce metoprolol to succinate to 25 mg p.o. daily Discontinue Eliquis Continue amlodipine and valsartan as well as Pravachol Discharge Disposition: HOME SELF-CARE
[2023-06-04] MEDS: PRAVASTATIN SODIUM 20 MG TAB PO SCH (08:19)
[2023-06-04] MEDS: amLODIPine 5 MG TAB PO SCH (08:20)
== END 2023-06-04 11:23 | disposition home or self-care (01) ==
LOC: CATHEP 06:46 → 6NMEDSUR 15:20 → CATHEP 06-04 11:23
PROVIDERS: ATTEND Internal Medicine Clinical Cardiac Electrophysiology
DX: I47.19 Other supraventricular tachycardia (principal); I10 Essential (primary) hypertension; E78.5 Hyperlipidemia, unspecified; K21.9 Gastro-esophageal reflux disease without esophagitis; Z90.49 Acquired absence of other specified parts of digestive tract; Z98.890 Other specified postprocedural states; Z82.49 Family history of ischemic heart disease and other diseases of the circulatory system; Z79.899 Other long term (current) drug therapy
CPT/HCPCS: 93623; 93653; 86900; 86901; 80053; 84443; 85025; 86850; C1894; C1769; C1760; C1730 ×3; C1731; J2001; J1644